=== PATIENT | female | born 1995 | race Caucasian/White ===

== ENCOUNTER 2022-04-17 12:04 | Outpatient (CLI) | payer OTHER | END 2022-04-17 13:20 | disposition home or self-care (01) | LOC: NST 12:04 | PROVIDERS: ATTEND Obstetrics & Gynecology Maternal & Fetal Medicine | DX: Z34.83 Encounter for supervision of other normal pregnancy, third trimester (principal) ==

== ENCOUNTER 2022-04-24 11:49 | Outpatient (CLI) | payer OTHER | END 2022-04-24 12:43 | disposition home or self-care (01) | LOC: NST 11:49 | PROVIDERS: ATTEND Obstetrics & Gynecology Maternal & Fetal Medicine | DX: Z34.83 Encounter for supervision of other normal pregnancy, third trimester (principal) ==